=== PATIENT | male | born 1960 | race Asian ===

== ENCOUNTER 2020-04-26 07:10 | Day surgery (SDC) | payer OTHER ==
[2020-04-24 12:14] LABS: COVID AG,FIA SOURCE NASOPHARYNGEAL
[~2020-04-26] VITALS: Ht 177.8 cm; Wt 75.0 kg
[~2020-04-26 07:10] MED LIST: ATOR20TA86 PO; KETOROLAC TROMETHAMINE 0.5% 5 ML OPHTHALMIC SOLUTION ONE; MOXIFLOXACIN HCL 0.5% 3 ML OPHTHALMIC SOLUTION ONE; OMEP20 PO; PHENYLEPHRINE HCL 2.5% 2 ML OPHTHALMIC SOLUTION ONE; RINGERS SOLUTION,LACTATED 500 ML IV ONE; TROPICAMIDE 1% 2 ML OPHTHALMIC SOLUTION ONE; XALA2.5OS OU
[2020-04-26] MEDS ORDERED: HYALURONATE SODIUM 12 MG/ML 0.8 ML SYRINGE IO ONE (07:11)
[2020-04-26] MEDS ORDERED: HYALURONATE SOD/CHONDROITIN SOD 0.5 ML VIAL IO ONE (07:11)
[2020-04-26] MEDS ORDERED: LIDOCAINE/PF 1% 2 ML VIAL IM ONE (07:11)
[2020-04-26] MEDS ORDERED: BALANCED SALT 15 ML OPHTHALMIC IRRIG.SOLN OU ONE (07:11)
[2020-04-26] MEDS ORDERED: POVIDONE-IODINE 10% 15 ML SOLUTION UD TP ONE (07:11)
[2020-04-26] MEDS ORDERED: EPINEPHrine 1:1,000 [1 MG/ML] AMP IM ONE (07:11)
[2020-04-26] MEDS ORDERED: TETRACAINE HCL/PF 0.5% 4 ML OPHTHALMIC SOLUTION OU ONE (07:11)
[2020-04-26] MEDS: KETOROLAC TROMETHAMINE 0.5% 5 ML OPHTHALMIC SOLUTION OD SCH ×3 (08:37→08:49)
[2020-04-26] MEDS: MOXIFLOXACIN HCL 0.5% 3 ML OPHTHALMIC SOLUTION OD SCH ×3 (08:38→08:49)
[2020-04-26] MEDS: PHENYLEPHRINE HCL 2.5% 2 ML OPHTHALMIC SOLUTION OD SCH ×3 (08:38→08:49)
[2020-04-26] MEDS: TROPICAMIDE 1% 2 ML OPHTHALMIC SOLUTION OD SCH ×3 (08:38→08:49)
[2020-04-26] MEDS ORDERED: MIDAZOLAM HCL 2 MG/2 ML VIAL IVP ONE (12:00)
[2020-04-26] MEDS ORDERED: FentaNYL CITRATE-PF 100 MCG/2 ML VIAL IVP ONE (12:00)
== END 2020-04-26 11:45 | disposition home or self-care (01) ==
LOC: SURGERY 07:10
PROVIDERS: ATTEND Ophthalmology
DX: H25.11 Age-related nuclear cataract, right eye (principal); Z20.828 Contact with and (suspected) exposure to other viral communicable diseases; I10 Essential (primary) hypertension; Z79.899 Other long term (current) drug therapy
CPT/HCPCS: 66984; 87426; 93005; C9803; J0171; J2250; J3010; J3490 ×2; J7120; V2632

== ENCOUNTER 2020-07-19 05:07 | Day surgery (SDC) | payer OTHER ==
[2020-07-17 09:36] LABS: COVID AG,FIA SOURCE NASOPHARYNGEAL
[~2020-07-19] VITALS: Ht 177.8 cm; Wt 63.6 kg
[~2020-07-19 05:07] MED LIST changes: -KETOROLAC TROMETHAMINE 0.5% 5 ML OPHTHALMIC SOLUTION ONE; -MOXIFLOXACIN HCL 0.5% 3 ML OPHTHALMIC SOLUTION ONE; -PHENYLEPHRINE HCL 2.5% 2 ML OPHTHALMIC SOLUTION ONE; -TROPICAMIDE 1% 2 ML OPHTHALMIC SOLUTION ONE
[2020-07-19] MEDS ORDERED: RINGERS SOLUTION,LACTATED 500 ML IV ONE (05:13)
[2020-07-19] MEDS ORDERED: KETOROLAC TROMETHAMINE 0.5% 5 ML OPHTHALMIC SOLUTION ONE (05:13)
[2020-07-19] MEDS ORDERED: MOXIFLOXACIN HCL 0.5% 3 ML OPHTHALMIC SOLUTION ONE (05:13)
[2020-07-19] MEDS ORDERED: TROPICAMIDE 1% 2 ML OPHTHALMIC SOLUTION ONE (05:14)
[2020-07-19] MEDS ORDERED: PHENYLEPHRINE HCL 2.5% 2 ML OPHTHALMIC SOLUTION ONE (05:14)
[2020-07-19] MEDS: KETOROLAC TROMETHAMINE 0.5% 5 ML OPHTHALMIC SOLUTION OS SCH ×3 (05:44→05:57)
[2020-07-19] MEDS: TROPICAMIDE 1% 2 ML OPHTHALMIC SOLUTION OS SCH ×3 (05:45→05:57)
[2020-07-19] MEDS: PHENYLEPHRINE HCL 2.5% 2 ML OPHTHALMIC SOLUTION OS SCH ×3 (05:45→05:57)
[2020-07-19] MEDS: MOXIFLOXACIN HCL 0.5% 3 ML OPHTHALMIC SOLUTION OS SCH ×3 (05:45→05:58)
[2020-07-19] MEDS ORDERED: FentaNYL CITRATE PF 100 MCG/2 ML VIAL IVP ONE (12:00)
[2020-07-19] MEDS ORDERED: MIDAZOLAM HCL 2 MG/2 ML VIAL IVP ONE (12:00)
== END 2020-07-19 08:20 | disposition home or self-care (01) ==
LOC: SURGERY 05:07
PROVIDERS: ATTEND Ophthalmology
DX: H25.12 Age-related nuclear cataract, left eye (principal); E78.00 Pure hypercholesterolemia, unspecified; Z98.890 Other specified postprocedural states; Z79.899 Other long term (current) drug therapy
CPT/HCPCS: 66984; 87426; 93005; C9803; J2250; J3010; J7120; V2632